=== PATIENT | female | born 1995 | race Caucasian/White ===

== ENCOUNTER 2017-12-01 08:17 | Emergency (ER) | payer OTHER | END 2017-12-01 08:55 | disposition home or self-care (01) | LOC: FTE 08:17 | DX: R51 Headache (principal); H57.12 Ocular pain, left eye | CPT/HCPCS: 99283; Z7502 ==

== ENCOUNTER 2018-03-17 13:17 | Emergency (ER) | payer OTHER | END 2018-03-17 16:00 | disposition home or self-care (01) | LOC: FTE 13:17 | DX: T23.201A Burn of second degree of right hand, unspecified site, initial encounter (principal); X10.2XXA Contact with fats and cooking oils, initial encounter; Y92.9 Unspecified place or not applicable | CPT/HCPCS: 99284 ==

== ENCOUNTER 2019-03-31 00:34 | Inpatient (IN) | payer OTHER ==
[2019-03-31] MEDS ORDERED: METHYLERGONOVINE 0.2 MG INJ IM ×2 (01:00→05:00)
[2019-03-31] MEDS ORDERED: LIDOCAINE 1% (MPF) 30 ML INJ INJ (01:00)
[2019-03-31] MEDS ORDERED: CARBOPROST 250 MCG INJ IM ×2 (01:00→05:00)
[2019-03-31] MEDS ORDERED: OXYTOCIN 30 UNITS/LR 500 ML IV (01:00)
[2019-03-31] MEDS ORDERED: BUTORPHANOL 2 MG INJ IV (01:00)
[2019-03-31] MEDS ORDERED: MISOPROSTOL 200 MCG TAB PR ×2 (01:00→05:00)
[2019-03-31] MEDS ORDERED: AMPICILLIN 2 GM/NS (PMX) 100 ML IV (01:00)
[2019-03-31] MEDS: OXYTOCIN 30 UNITS/LR 500 ML IV ×3 (02:04→06:05)
[2019-03-31] MEDS: LACTATED RINGER'S 1,000 ML IV ×2 (02:13→21:35)
[2019-03-31] MEDS ORDERED: AMPICILLIN 1 GM/NS (PMX) 50 ML IV (05:00)
[2019-03-31] MEDS ORDERED: OXYCODONE/ASPIRIN (4.88/325) TAB PO ×2 (05:00)
[2019-03-31] MEDS ORDERED: ZOLPIDEM 5 MG TAB PO (05:00)
[2019-03-31] MEDS ORDERED: CEFAZOLIN 2 GM/50 ML (PMX) 50 ML IVPB (06:00)
[2019-03-31] MEDS: WITCH HAZEL/GLYCERIN PAD PR (06:02)
[2019-03-31] MEDS: BENZOCAINE 20% 56 ML SPRAY TOP (06:02)
[2019-03-31] MEDS: IBUPROFEN 600 MG TAB PO ×3 (06:02→17:55)
[2019-03-31] MEDS: LANOLIN HPA 1 PKT TOP (06:03)
[2019-03-31] MEDS: CEFAZOLIN 2 GM/50 ML (PMX) 50 ML IVPB ×3 (06:03→21:35)
[2019-03-31] MEDS: SENNA/DOCUSATE NA (8.6MG/50MG) TAB PO ×2 (09:29→20:29)
[2019-03-31] MEDS ORDERED: LACTATED RINGER'S 500 ML IV (19:00)
[2019-04-01] MEDS: IBUPROFEN 600 MG TAB PO ×4 (00:42→17:39)
[2019-04-01] MEDS: SENNA/DOCUSATE NA (8.6MG/50MG) TAB PO ×2 (09:50→20:31)
[2019-04-02] MEDS: IBUPROFEN 600 MG TAB PO ×3 (00:26→12:08)
[2019-04-02] MEDS: SENNA/DOCUSATE NA (8.6MG/50MG) TAB PO (09:00)
[2019-04-02] MEDS: DIPHTH/TET/ACEL PERTUSS (ADULT) 0.5 ML VIAL IM* (12:11)
== END 2019-04-02 18:43 | disposition home or self-care (01) | DRG 805 ==
LOC: OBT 00:34 → L-D 00:37 → OBT 00:39 → L-D 00:39 → PP1 04:25
PROC: 10D07Z6 Extraction of Products of Conception, Vacuum, Via Natural or Artificial Opening (ICD-10-PCS; principal; 2019-03-31)
PROC: 0W8NXZZ Division of Female Perineum, External Approach (ICD-10-PCS; 2019-03-31)
PROC: 0UQGXZZ Repair Vagina, External Approach (ICD-10-PCS; 2019-03-31)
DX: O62.3 Precipitate labor (principal); O60.13X0 Preterm labor second trimester with preterm delivery third trimester, not applicable or unspecified; Z37.0 Single live birth; O45.93 Premature separation of placenta, unspecified, third trimester; O71.4 Obstetric high vaginal laceration alone; Z3A.36 36 weeks gestation of pregnancy
CPT/HCPCS: 85025; 85610; 85730; 86592; 86762; 86850; 86900; 86901; 87340; 88307; 90715; 99464